=== PATIENT | female | born 1990 | race Caucasian/White ===

== ENCOUNTER 2018-10-31 18:10 | Emergency (ER) | payer OTHER ==
[~2018-10-31] VITALS: Ht 162.6 cm; Wt 61.4 kg
[2018-10-31] MEDS ORDERED: PRENTAB55 PO (18:15)
[2018-10-31] MEDS ORDERED: NS 1,000 ML IV ONE (18:45)
[2018-10-31 19:02] LABS: BASO % 0.4 % (0.0-1.0); EOS # 0.1 10^3/uL (0.0-0.50); EOS % 0.5 % (0.0-3.0); HEMATOCRIT 35.9 % (36.0-47.0); HEMOGLOBIN 12.3 g/dl (12.0-15.5); LYMPH % 19.2 % (24.0-44.0); MEAN CORPUSCULAR HEMOGLOBIN 29.3 pg (27.0-33.0); MEAN CORPUSCULAR HGB CONC 34.3 g/dl (32.0-36.5); MEAN CORPUSCULAR VOLUME 85.5 fl (80.0-96.0); MONO # 0.7 10^3/uL (0.0-0.8); MONO % 6.1 % (0.0-5.0); NEUTROPHILS # 7.8 10^3/uL (1.8-7.7); NEUTROPHILS % 73.3 % (36.0-66.0); PLATELET COUNT, AUTOMATED 312 10^3/uL (150-450); WHITE BLOOD COUNT 10.6 10^3/uL (4.0-10.0)
[2018-10-31 19:03] LABS: URINE PREG TEST POSITIVE (NEGATIVE)
--- NOTE | 2018-10-31 20:25 | REPVR ---
EXAM: US Pelvis Limited, Transabdominal EXAM DATE/TIME: 10/31/2018 7:54 PM CLINICAL HISTORY: 28 years old, female; Pain; Pelvic pain; Prior surgery; Surgery date: 6+ months; Surgery type: Hernia repair in 1998; Additional info: PT tender old ing. Hernia repair site, 7wks preg TECHNIQUE: Real-time transabdominal pelvic ultrasound with image documentation. Limited exam. COMPARISON: 1ST TRIMESTER US 10/31/2018 7:35 PM FINDINGS: Soft tissues: Examination of the right inguinal region with and without Valsalva maneuver does not demonstrate the presence of an inguinal hernia. IMPRESSION: No evidence of an inguinal hernia. Electronically signed by: Lionel Tavarez On 10/31/2018 20:25:05 PM
--- NOTE | 2018-10-31 20:27 | REPVR ---
EXAM: US First Trimester, Transabdominal EXAM DATE/TIME: 10/31/2018 7:54 PM CLINICAL HISTORY: 28 years old, female; Pain; complicated by abdominal or pelvic pain; Right lower quadrant; First trimester; Gestational age or lmp: 09/16/18; ; Additional info: Rlq pain, 7-8wks preg TECHNIQUE: Real-time transabdominal obstetrical ultrasound of the maternal pelvis and a first trimester , less than 14 weeks 0 days, with image documentation. COMPARISON: No relevant prior studies available. FINDINGS: GESTATION: Gestation: Single gestational sac demonstrated within the uterine fundus with a double sac sign. pole measures 4 mm. Heart rate: heart rate 121 beats per minute. Placenta: Unremarkable. No subchorionic bleed. Amniotic fluid: Amniotic and chorionic fluid are normal for gestational age. BIOMETRY: Estimated gestational age: Gestational age using crown-rump length is 6 weeks 0 days. Gestational age using LMP of 09/16/2018 and 6 weeks 3 days. Estimated due date: ERICKSON is 06/26/2019 ultrasound. MATERNAL: Uterus: Unremarkable. Cervix: Unremarkable. Right adnexa: Unremarkable. Left adnexa: Unremarkable. Intraperitoneal: No intraperitoneal free fluid. IMPRESSION: Unremarkable oral gestation of 6 weeks as described above. Followup examination in 19-20 weeks 4 detailed anatomic survey is suggested if clinically desired. Electronically signed by: Lionel Tavarez On 10/31/2018 20:27:02 PM
[2018-10-31 21:09] VITALS: BP 115/76
== END 2018-10-31 21:12 | disposition home or self-care (01) ==
LOC: M ED 18:10
DX: O9A.211 Injury, poisoning and certain other consequences of external causes complicating pregnancy, first trimester (principal); S39.013A Strain of muscle, fascia and tendon of pelvis, initial encounter; X50.0XXA Overexertion from strenuous movement or load, initial encounter; Y92.89 Other specified places as the place of occurrence of the external cause; Z3A.01 Less than 8 weeks gestation of pregnancy